=== PATIENT | female | born 1955 | race Caucasian/White ===

== ENCOUNTER 2017-04-28 07:45 | Inpatient (IN) | payer OTHER ==
[~2017-04-28] VITALS: Ht 172.7 cm; Wt 81.0 kg
[2017-04-28] MEDS ORDERED: SODIUM CHLORIDE 0.9% 1,000 ML IV ONE (08:06)
[2017-04-28] MEDS ORDERED: ONDANSETRON 2MG/ML, 2ML ONE (08:27)
[2017-04-28] MEDS ORDERED: MAALOX/HYOSCYAMINE/LIDOCAINE 45 ML BOTTLE ONE (08:27)
[2017-04-28] MEDS ORDERED: FAMOTIDINE 20 MG/2 ML ONE (08:27)
[2017-04-28] MEDS ORDERED: FAMOTIDINE 20 MG/2 ML IVP ONE (08:30)
[2017-04-28] MEDS ORDERED: ONDANSETRON 2MG/ML, 2ML IVPush ONE (08:30)
[2017-04-28] MEDS ORDERED: SODIUM CHLORIDE FLUSH 10ML SYR IVF ONE (08:30)
[2017-04-28] MEDS ORDERED: SODIUM CHLORIDE 0.9% 1,000ML IVBOLUS ONE ×2 (08:30→10:30)
[2017-04-28] MEDS ORDERED: MAALOX/HYOSCYAMINE/LIDOCAINE 45 ML BOTTLE PO ONE (08:30)
[2017-04-28 08:36] LABS: ASPARTATE AMINO TRANSFERASE 13 U/L (15-37); BLOOD UREA NITROGEN 15 mg/dL (7-18)
[2017-04-28] MEDS ORDERED: COLE1TAB4 PO (11:33)
[2017-04-28] MEDS ORDERED: PARO10TA24 PO (11:33)
[2017-04-28] MEDS ORDERED: CIPR500T3 PO (11:34)
[2017-04-28] MEDS: ONDANSETRON 2MG/ML, 2ML IVPush SCH ×2 (12:30→18:20)
[2017-04-28] MEDS ORDERED: LORazepam 2 MG/ML, 1ML IVPush PRN (12:30)
[2017-04-28] MEDS ORDERED: MAALOX/HYOSCYAMINE/LIDOCAINE 45 ML BOTTLE PO PRN (12:30)
[2017-04-28] MEDS ORDERED: ZOLPIDEM 5MG TABLET PO PRN ×2 (12:30→14:30)
[2017-04-28] MEDS ORDERED: morphine SULFATE 10 MG/ML, 1ML IVPush PRN (12:30)
[2017-04-28] MEDS ORDERED: HYDROcodone/APAP 5/325 TABLET PO PRN (12:30)
[2017-04-28 13:09] VITALS: BP 110/68
[2017-04-28 13:56] VITALS: BP 110/68
[2017-04-28] MEDS: LACTATED RINGERS 1,000 ML IV SCH ×2 (14:10→21:31)
[2017-04-28] MEDS: ENOXAPARIN 40 MG/0.4 ML SQ SCH (14:14)
[2017-04-28] MEDS: LACTOBACILLUS CHEW TABLET PO SCH ×2 (14:14→21:28)
[2017-04-28 15:56] LABS: OCCBLD OBC PASS
[2017-04-28] MEDS: CHOLESTYRAMINE 4GM PACKET PO PRN (16:02)
[2017-04-28 20:39] VITALS: BP 114/65
[2017-04-28] MEDS: PAROXETINE 10 MG TABLET PO SCH (21:29)
[2017-04-29] MEDS: ONDANSETRON 2MG/ML, 2ML IVPush SCH ×3 (00:30→12:02)
[2017-04-29 02:58] VITALS: BP 105/64
[2017-04-29] MEDS: CHOLESTYRAMINE 4GM PACKET PO PRN (04:32)
[2017-04-29] MEDS: ACETAMINOPHEN 325 MG TABLET PO PRN (05:58)
[2017-04-29] MEDS: LACTATED RINGERS 1,000 ML IV SCH ×3 (05:58→21:30)
[2017-04-29] MEDS: LACTOBACILLUS CHEW TABLET PO SCH ×4 (05:58→20:26)
[2017-04-29 06:17] LABS: ASPARTATE AMINO TRANSFERASE 11 U/L (15-37); BLOOD UREA NITROGEN 8 mg/dL (7-18)
[2017-04-29 06:48] VITALS: BP 103/58
[2017-04-29] MEDS: PAROXETINE 10 MG TABLET PO SCH ×2 (08:55→20:26)
[2017-04-29] MEDS: ENOXAPARIN 40 MG/0.4 ML SQ SCH (12:01)
[2017-04-29 13:00] VITALS: BP 95/60
[2017-04-29] MEDS ORDERED: LOPERAMIDE 2 MG CAPSULE PO ONE (18:00)
[2017-04-29] MEDS ORDERED: ONDANSETRON 2MG/ML, 2ML IVPush PRN (18:30)
[2017-04-29 20:01] VITALS: BP 103/63
[2017-04-30 02:16] VITALS: BP 120/72
[2017-04-30] MEDS: CHOLESTYRAMINE 4GM PACKET PO PRN (03:32)
[2017-04-30] MEDS: LACTATED RINGERS 1,000 ML IV SCH ×3 (05:30→21:47)
[2017-04-30] MEDS: LACTOBACILLUS CHEW TABLET PO SCH ×4 (05:51→21:47)
[2017-04-30 06:58] VITALS: BP 100/58
[2017-04-30] MEDS ORDERED: LOPERAMIDE 2 MG CAPSULE PO PRN (11:00)
[2017-04-30] MEDS ORDERED: LOPERAMIDE 2 MG CAPSULE PO ONE (11:00)
[2017-04-30] MEDS: ENOXAPARIN 40 MG/0.4 ML SQ SCH (11:12)
[2017-04-30 12:55] VITALS: BP 113/69
[2017-04-30 18:39] VITALS: BP 107/68
[2017-04-30] MEDS: ACETAMINOPHEN 325 MG TABLET PO PRN (21:47)
[2017-04-30] MEDS: PAROXETINE 10 MG TABLET PO SCH ×2 (21:47→23:03)
[2017-05-01 01:28] VITALS: BP 92/54
[2017-05-01] MEDS: LACTATED RINGERS 1,000 ML IV SCH (04:51)
[2017-05-01 06:21] LABS: BLOOD UREA NITROGEN 9 mg/dL (7-18)
[2017-05-01] MEDS: LACTOBACILLUS CHEW TABLET PO SCH ×2 (06:47→11:14)
[2017-05-01 07:38] VITALS: BP 114/73
[2017-05-01] MEDS: ENOXAPARIN 40 MG/0.4 ML SQ SCH (12:30)
[2017-05-01 12:50] VITALS: BP 120/74
== END 2017-05-01 12:56 | disposition home or self-care (01) | DRG 641 ==
LOC: ED 08:30 → EDIP 11:08 → 4NOR 13:01
DX: E86.0 Dehydration (principal); F41.9 Anxiety disorder, unspecified; E87.2 Acidosis; F43.21 Adjustment disorder with depressed mood; D75.1 Secondary polycythemia; R19.7 Diarrhea, unspecified; D72.829 Elevated white blood cell count, unspecified; Z80.3 Family history of malignant neoplasm of breast; Z79.899 Other long term (current) drug therapy
CPT/HCPCS: 36415; 74177; 80048; 80053; 81003; 82272; 83690; 83735; 84100; 84443; 85025; 86677; 87046; 87324; 87328; 87329; 89055; 96361; 96374; J1650; J2405; J7030; J7120; S0028

== ENCOUNTER 2018-09-15 09:43 | Emergency (ER) | payer OTHER ==
[~2018-09-15] VITALS: Ht 172.7 cm; Wt 73.0 kg
[~2018-09-15 09:43] MED LIST: CIPR500T3 PO; COLE1TAB5 PO; PARO10TA56 PO
[2018-09-15 09:57] VITALS: BP 130/84
[2018-09-15] MEDS ORDERED: LANS30CA60 PO (10:13)
[2018-09-15] MEDS ORDERED: KETOROLAC 30 MG/1 ML IVPush ONE (10:30)
[2018-09-15] MEDS ORDERED: SODIUM CHLORIDE FLUSH 10ML SYR IVF ONE (10:30)
[2018-09-15] MEDS ORDERED: ONDANSETRON 2MG/ML, 2ML IVPush ONE (10:30)
[2018-09-15] MEDS ORDERED: KETOROLAC 30 MG/1 ML ONE (10:32)
[2018-09-15] MEDS ORDERED: ONDANSETRON 2MG/ML, 2ML ONE (10:32)
[2018-09-15 10:37] LABS: BASOPHILS # (AUTO) 0.04 x10^3/uL (0-0.1); BASOPHILS % (AUTO) 0 % (0-1); EOSINOPHILS # (AUTO) 0.03 x10^3/uL (0-0.4); EOSINOPHILS % (AUTO) 0 % (1-7); LYMPHOCYTES # (AUTO) 1.77 x10^3/uL (1-3.4); LYMPHOCYTES % (AUTO) 18 % (22-44); MD NO; MEAN CORPUSCULAR HEMOGLOBIN 32.2 pg (27.0-34.8); MEAN CORPUSCULAR HGB CONC 33.3 g/dL (32.4-35.8); MEAN CORPUSCULAR VOLUME 96.7 fL (80-100); MEAN PLATELET VOLUME 7.7 fL (7.4-10.4); MONOCYTES # (AUTO) 0.81 x10^3/uL (0.2-0.8); MONOCYTES % (AUTO) 8 % (2-9); NEUTROPHILS # (AUTO) 7.21 x10^3/uL (1.8-6.8); NEUTROPHILS % (AUTO) 73 % (42-75); PLATELET COUNT 291 x10^3/uL (130-400); RED BLOOD COUNT 5.65 x10^6/uL (3.82-5.3); RED CELL DISTRIBUTION WIDTH 12.5 % (9.6-15.2)
[2018-09-15 10:48] LABS: ALANINE AMINOTRANSFERASE 28 U/L (12-78); ALBUMIN 4.4 g/dL (3.4-5.0); ANION GAP 9 mmol/L (5-15); CALCIUM 9.2 mg/dL (8.5-10.1); CHLORIDE 109 mmol/L (98-107); CREATININE 1.23 mg/dL (0.55-1.02)
[2018-09-15 10:50] LABS: ALKALINE PHOSPHATASE 58 U/L (45-117); BILIRUBIN,TOTAL 0.7 mg/dL (0.2-1.0); TOTAL PROTEIN 7.9 g/dL (6.4-8.2)
[2018-09-15 11:02] LABS: MICROSCOPIC AUTO
[2018-09-15 11:03] LABS: CULTURE INDICATED? NO
== END 2018-09-15 11:36 | disposition home or self-care (01) ==
LOC: ED 11:17
DX: N20.1 Calculus of ureter (principal); Z87.442 Personal history of urinary calculi; Z87.11 Personal history of peptic ulcer disease
CPT/HCPCS: 36415; 74176; 80053; 81001; 85025; 96374; 99284; J1885